=== PATIENT | male | born 1970 | race Caucasian/White ===

== ENCOUNTER → 2017-07-09 | Outpatient (REF) | payer BC ==
[2017-07-09 14:54] LABS: ALBUMIN 3.4 GM/DL (3.2-5.2); ALBUMIN/GLOBULIN RATIO 1.13 (1.00-1.93); ALKALINE PHOSPHATASE 93 U/L (45-117); ALT/SGPT 23 U/L (12-78); ANION GAP 5 MEQ/L (8-16); AST/SGOT 12 U/L (7-37); BILIRUBIN,TOTAL 0.5 MG/DL (0.2-1.0); BLOOD UREA NITROGEN 20 MG/DL (7-18); CALCIUM LEVEL 8.6 MG/DL (8.5-10.1); CARBON DIOXIDE LEVEL 29 MEQ/L (21-32); CHLORIDE LEVEL 111 MEQ/L (98-107); CHOLESTEROL LEVEL 130 MG/DL (<200); CHOLESTEROL RISK RATIO 2.708 (<5); CREATININE FOR GFR 1.02 MG/DL (0.70-1.30); GLOMERULAR FILTRATION RATE > 60.0 (>60); GLUCOSE, FASTING 138 MG/DL (70-100); HDL CHOLESTEROL 48 MG/DL (>40); LDL CHOLESTEROL 65.4 MG/DL (<100); NON-HDL-C 82 MG/DL; POTASSIUM SERUM 4.5 MEQ/L (3.5-5.1); SODIUM LEVEL 145 MEQ/L (136-145); TOTAL PROTEIN 6.4 GM/DL (6.4-8.2); TRIGLYCERIDES LEVEL 83 MG/DL (<150)
[2017-07-09 15:02] LABS: ESTIMATED AVERAGE GLUCOSE 151 MG/DL (60-110); HEMOGLOBIN A1c 6.9 %
== END ==
LOC: M SFHCLACO 08:20
DX: E11.9 Type 2 diabetes mellitus without complications (principal); Z68.41 Body mass index [BMI] 40.0-44.9, adult; Z86.79 Personal history of other diseases of the circulatory system; Z86.39 Personal history of other endocrine, nutritional and metabolic disease; E03.9 Hypothyroidism, unspecified
CPT/HCPCS: 84443

== ENCOUNTER → 2017-10-08 | Outpatient (REF) | payer BC ==
[2017-10-08 15:12] LABS: ESTIMATED AVERAGE GLUCOSE 128 MG/DL (60-110); HEMOGLOBIN A1c 6.1 %
[2017-10-08 15:16] LABS: ALBUMIN 3.5 GM/DL (3.2-5.2); ALBUMIN/GLOBULIN RATIO 1.13 (1.00-1.93); ALKALINE PHOSPHATASE 89 U/L (45-117); ALT/SGPT 32 U/L (12-78); ANION GAP 10 MEQ/L (8-16); AST/SGOT 16 U/L (7-37); BILIRUBIN,TOTAL 0.6 MG/DL (0.2-1.0); BLOOD UREA NITROGEN 20 MG/DL (7-18); CALCIUM LEVEL 8.9 MG/DL (8.5-10.1); CARBON DIOXIDE LEVEL 23 MEQ/L (21-32); CHLORIDE LEVEL 112 MEQ/L (98-107); CHOLESTEROL LEVEL 134 MG/DL (<200); CHOLESTEROL RISK RATIO 2.913 (<5); CREATININE FOR GFR 1.08 MG/DL (0.70-1.30); GLOMERULAR FILTRATION RATE > 60.0 (>60); GLUCOSE, FASTING 129 MG/DL (70-100); HDL CHOLESTEROL 46 MG/DL (>40); LDL CHOLESTEROL 75.2 MG/DL (<100); NON-HDL-C 88 MG/DL; POTASSIUM SERUM 4.4 MEQ/L (3.5-5.1); SODIUM LEVEL 145 MEQ/L (136-145); TOTAL PROTEIN 6.6 GM/DL (6.4-8.2); TRIGLYCERIDES LEVEL 64 MG/DL (<150)
== END ==
LOC: M SFHCLACO 08:02
DX: E03.9 Hypothyroidism, unspecified (principal); Z86.39 Personal history of other endocrine, nutritional and metabolic disease; E11.9 Type 2 diabetes mellitus without complications; Z68.41 Body mass index [BMI] 40.0-44.9, adult; Z86.79 Personal history of other diseases of the circulatory system
CPT/HCPCS: 84443

== ENCOUNTER 2018-04-04 02:47 | Emergency (ER) | payer BC ==
[2018-04-04] MEDS: KETOROLAC 60 MG/2 ML VIAL (J1885) IM (03:30)
[2018-04-04] MEDS ORDERED: KETOROLAC 30 MG/ML VIAL (J1885) As Ordered (03:54)
== END 2018-04-04 04:11 | disposition home or self-care (01) ==
LOC: M ED 04:11
DX: M65.88 Other synovitis and tenosynovitis, other site (principal); E11.9 Type 2 diabetes mellitus without complications; Z79.899 Other long term (current) drug therapy; Z88.1 Allergy status to other antibiotic agents
CPT/HCPCS: J1885

== ENCOUNTER → 2020-03-21 | Outpatient (REF) | payer BC ==
[~2020-03-21] MED LIST: GABA-845; JANU50TA8; LEVI20TA39; LEVO50TA5; PRED20TA PO
[2020-03-21 13:35] LABS: ALBUMIN 3.3 GM/DL (3.2-5.2); ALT/SGPT 28 U/L (12-78); BILIRUBIN,TOTAL 0.5 MG/DL (0.2-1.0); BLOOD UREA NITROGEN 17 MG/DL (7-18); CALCIUM LEVEL 9.7 MG/DL (8.5-10.1); CARBON DIOXIDE LEVEL 27 MEQ/L (21-32); CHLORIDE LEVEL 105 MEQ/L (98-107); CHOLESTEROL LEVEL 187 MG/DL (<200); CHOLESTEROL RISK RATIO 3.596 (<5); CREATININE FOR GFR 1.14 MG/DL (0.70-1.30); GLOMERULAR FILTRATION RATE > 60.0 (>56); GLUCOSE, FASTING 324 MG/DL (70-100); HDL CHOLESTEROL 52 MG/DL (>40); LDL CHOLESTEROL 106 MG/DL (<100); NON-HDL-C 135 MG/DL; POTASSIUM SERUM 4.4 MEQ/L (3.5-5.1); SODIUM LEVEL 139 MEQ/L (136-145); TOTAL PROTEIN 6.5 GM/DL (6.4-8.2); TRIGLYCERIDES LEVEL 144 MG/DL (<150)
[2020-03-21 14:58] LABS: HEMOGLOBIN A1c 9.9 %
== END ==
LOC: M SFHCADAM 08:40
PROVIDERS: ATTEND Physician Assistant
DX: E03.9 Hypothyroidism, unspecified (principal); E66.9 Obesity, unspecified; E11.9 Type 2 diabetes mellitus without complications; Z86.79 Personal history of other diseases of the circulatory system; Z86.39 Personal history of other endocrine, nutritional and metabolic disease; Z68.41 Body mass index [BMI] 40.0-44.9, adult

== ENCOUNTER → 2020-08-13 | Outpatient (REF) | payer BC ==
[2020-08-14 13:15] LABS: BLOOD UREA NITROGEN 19 MG/DL (7-18); CALCIUM LEVEL 9.6 MG/DL (8.5-10.1); CARBON DIOXIDE LEVEL 28 MEQ/L (21-32); CHLORIDE LEVEL 108 MEQ/L (98-107); CREATININE FOR GFR 1.07 MG/DL (0.70-1.30); GLOMERULAR FILTRATION RATE > 60.0 (>56); GLUCOSE, FASTING 174 MG/DL (70-100); SODIUM LEVEL 141 MEQ/L (136-145)
[2020-08-14 14:10] LABS: HEMOGLOBIN A1c 8.7 %
== END ==
LOC: M SFHCADAM 15:38
PROVIDERS: ATTEND Physician Assistant
DX: E11.9 Type 2 diabetes mellitus without complications (principal)

== ENCOUNTER → 2021-02-13 | Outpatient (REF) | payer BC ==
[~2021-02-13] MED LIST changes: +GABA-283; -GABA-845
[2021-02-13 16:49] LABS: HEMOGLOBIN A1c 10.1 %
[2021-02-13 17:13] LABS: ALBUMIN 3.8 GM/DL (3.2-5.2); ALT/SGPT 40 U/L (12-78); BILIRUBIN,TOTAL 0.3 MG/DL (0.2-1.0); BLOOD UREA NITROGEN 28 MG/DL (7-18); CALCIUM LEVEL 10.1 MG/DL (8.5-10.1); CARBON DIOXIDE LEVEL 25 MEQ/L (21-32); CHLORIDE LEVEL 107 MEQ/L (98-107); CREATININE FOR GFR 1.31 MG/DL (0.70-1.30); GLOMERULAR FILTRATION RATE > 60.0 (>56); GLUCOSE, FASTING 276 MG/DL (70-100); POTASSIUM SERUM 4.3 MEQ/L (3.5-5.1); SODIUM LEVEL 140 MEQ/L (136-145); TOTAL PROTEIN 7.2 GM/DL (6.4-8.2)
== END ==
LOC: M SFHCADAM 15:10
PROVIDERS: ATTEND Physician Assistant
DX: E03.9 Hypothyroidism, unspecified (principal); E11.9 Type 2 diabetes mellitus without complications; Z68.41 Body mass index [BMI] 40.0-44.9, adult; Z86.79 Personal history of other diseases of the circulatory system; Z86.39 Personal history of other endocrine, nutritional and metabolic disease

== ENCOUNTER → 2021-12-20 | Outpatient (REF) | payer BC ==
[2021-12-20 17:54] LABS: BASO # 0.1 10^3/uL (0.0-0.2); BASO % 0.7 % (0.0-1.0); EOS # 0.2 10^3/uL (0.0-0.5); EOS % 2.4 % (0.0-3.0); HEMATOCRIT 40.6 % (42.0-52.0); HEMOGLOBIN 13.6 g/dl (13.5-17.5); LYMPH # 2.4 10^3/uL (1.5-5.0); LYMPH % 32.1 % (24.0-44.0); MEAN CORPUSCULAR HEMOGLOBIN 29.6 pg (27.0-33.0); MEAN CORPUSCULAR HGB CONC 33.5 g/dl (32.0-36.5); MEAN CORPUSCULAR VOLUME 88.5 fl (80.0-96.0); MONO # 0.8 10^3/uL (0.0-0.8); MONO % 10.9 % (2.0-8.0); NEUTROPHILS # 3.9 10^3/uL (1.5-8.5); NEUTROPHILS % 52.3 % (36.0-66.0); PLATELET COUNT, AUTOMATED 339 10^3/uL (150-450); RED BLOOD COUNT 4.59 10^6/uL (4.30-6.10); WHITE BLOOD COUNT 7.5 10^3/uL (4.0-10.0)
[2021-12-20 18:10] LABS: HEMOGLOBIN A1c 11.6 %
[2021-12-20 18:38] LABS: ALBUMIN 2.9 GM/DL (3.2-5.2); ALT/SGPT 37 U/L (12-78); BILIRUBIN,TOTAL 0.3 MG/DL (0.2-1.0); BLOOD UREA NITROGEN 7 MG/DL (7-18); CALCIUM LEVEL 8.5 MG/DL (8.5-10.1); CARBON DIOXIDE LEVEL 23 MEQ/L (21-32); CHLORIDE LEVEL 112 MEQ/L (98-107); CHOLESTEROL LEVEL 133 MG/DL (<200); CHOLESTEROL RISK RATIO 3.594 (<5); CREATININE FOR GFR 0.96 MG/DL (0.70-1.30); GLOMERULAR FILTRATION RATE > 60.0 (>56); GLUCOSE, FASTING 239 MG/DL (70-100); HDL CHOLESTEROL 37 MG/DL (>40); LDL CHOLESTEROL 75 MG/DL (<100); NON-HDL-C 96 MG/DL; POTASSIUM SERUM 3.7 MEQ/L (3.5-5.1); SODIUM LEVEL 142 MEQ/L (136-145); TRIGLYCERIDES LEVEL 107 MG/DL (<150)
[2021-12-20 18:40] LABS: CREATININE, URINE 59.9 MG/DL; MALB URINE SIEMENS 72.7 MG/L; MAU/CREAT RATIO 121.3 MCG/MG (0.0-30.0)
[2021-12-20 19:04] LABS: VITAMIN B12 LEVEL 620 PG/ML (247-911)
== END ==
LOC: M SFHCADAM 14:07
PROVIDERS: ATTEND Physician Assistant
DX: E03.9 Hypothyroidism, unspecified (principal); E11.9 Type 2 diabetes mellitus without complications; Z86.39 Personal history of other endocrine, nutritional and metabolic disease

== ENCOUNTER → 2021-12-23 | Outpatient (REF) | payer BC | LOC: M SFHCADAM 14:36 | PROVIDERS: ATTEND Physician Assistant | DX: R19.7 Diarrhea, unspecified (principal) ==

== ENCOUNTER → 2022-04-24 | Outpatient (REF) | payer BC ==
[2022-04-24 13:33] LABS: BASO # 0.1 10^3/uL (0.0-0.2); BASO % 0.5 % (0.0-1.0); EOS # 0.2 10^3/uL (0.0-0.5); EOS % 2.1 % (0.0-3.0); HEMATOCRIT 48.3 % (42.0-52.0); HEMOGLOBIN 15.7 g/dl (13.5-17.5); LYMPH # 2.7 10^3/uL (1.5-5.0); LYMPH % 29.2 % (24.0-44.0); MEAN CORPUSCULAR HEMOGLOBIN 29.7 pg (27.0-33.0); MEAN CORPUSCULAR HGB CONC 32.5 g/dl (32.0-36.5); MEAN CORPUSCULAR VOLUME 91.3 fl (80.0-96.0); MONO # 0.9 10^3/uL (0.0-0.8); MONO % 9.9 % (2.0-8.0); NEUTROPHILS # 5.3 10^3/uL (1.5-8.5); NEUTROPHILS % 57.7 % (36.0-66.0); PLATELET COUNT, AUTOMATED 299 10^3/uL (150-450); RED BLOOD COUNT 5.29 10^6/uL (4.30-6.10); WHITE BLOOD COUNT 9.3 10^3/uL (4.0-10.0)
[2022-04-24 13:46] LABS: HEMOGLOBIN A1c 7.3 % (4.0-6.0)
[2022-04-24 13:54] LABS: ALBUMIN 3.5 G/DL (3.2-5.2); ALKALINE PHOSPHATASE 136 U/L (46-116); ALT/SGPT 27 U/L (7.0-40); AST/SGOT 22 U/L (<34); BILIRUBIN,TOTAL 0.4 MG/DL (0.3-1.2); BLOOD UREA NITROGEN 24 MG/DL (9-23); CALCIUM LEVEL 9.4 MG/DL (8.5-10.1); CARBON DIOXIDE LEVEL 25 MMOL/L (20-31); CHLORIDE LEVEL 107 MMOL/L (98-107); CREATININE FOR GFR 1.01 MG/DL (0.70-1.30); CREATININE, URINE 226.1 MG/DL; GLOMERULAR FILTRATION RATE > 60.0 (>56); GLUCOSE, FASTING 155 MG/DL (60-100); POTASSIUM SERUM 5.1 MMOL/L (3.5-5.1); SODIUM LEVEL 141 MMOL/L (136-145); TOTAL PROTEIN 6.8 G/DL (5.7-8.2)
[2022-04-24 13:57] LABS: TOTAL 25(OH) VITAMIN D 30.2 NG/ML (20.0-100.0)
[2022-04-24 14:39] LABS: MAU/CREAT RATIO 186.2 MCG/MG (0.0-30.0)
== END ==
LOC: M SFHCADAM 10:30
PROVIDERS: ATTEND Physician Assistant
DX: E11.65 Type 2 diabetes mellitus with hyperglycemia (principal); Z98.84 Bariatric surgery status; E03.9 Hypothyroidism, unspecified; Z68.42 Body mass index [BMI] 45.0-49.9, adult; I10 Essential (primary) hypertension; E78.5 Hyperlipidemia, unspecified; Z12.5 Encounter for screening for malignant neoplasm of prostate
CPT/HCPCS: 80053; 82043; 82306; 83036; 85025; G0103

== ENCOUNTER → 2022-04-24 | Outpatient (CLI) | payer BC | LOC: M ADAMS 10:35 | PROVIDERS: ATTEND Physician Assistant | DX: S30.0XXA Contusion of lower back and pelvis, initial encounter (principal); M25.78 Osteophyte, vertebrae; M51.37 Other intervertebral disc degeneration, lumbosacral region ==

== ENCOUNTER → 2022-05-22 | Outpatient (CLI) | payer BC | LOC: M PLAIMG 06:44 | PROVIDERS: ATTEND Physician Assistant | DX: S30.0XXA Contusion of lower back and pelvis, initial encounter (principal) ==

== ENCOUNTER 2022-08-01 06:28 | Day surgery (SDC) | payer BC ==
[~2022-08-01] VITALS: Ht 195.6 cm; Wt 163.0 kg
[~2022-08-01 06:28] MED LIST changes: +NS 1,000 ML IV ONE
[2022-08-01] MEDS ORDERED: SIMETHICONE 40MG/0.6ML DROPS 30ML As Ordered ONE (06:54)
[2022-08-01] MEDS ORDERED: LIDOCAINE 2% 100MG/5ML SDV (FOR ANES.) As Ordered ONE (06:55)
[2022-08-01] MEDS ORDERED: propofoL 200 MG/20 ML VIAL As Ordered ONE ×2 (06:55→08:01)
[2022-08-01 08:40] VITALS: BP 180/88
== END 2022-08-01 08:50 | disposition home or self-care (01) ==
LOC: M OPP 06:28
PROVIDERS: ATTEND Surgery
DX: Z12.11 Encounter for screening for malignant neoplasm of colon (principal); D12.6 Benign neoplasm of colon, unspecified; K57.30 Diverticulosis of large intestine without perforation or abscess without bleeding; E03.9 Hypothyroidism, unspecified; E11.9 Type 2 diabetes mellitus without complications; Z79.84 Long term (current) use of oral hypoglycemic drugs; Z79.85 Long-term (current) use of injectable non-insulin antidiabetic drugs; Z79.890 Hormone replacement therapy; Z79.891 Long term (current) use of opiate analgesic; Z79.899 Other long term (current) drug therapy; Z88.1 Allergy status to other antibiotic agents; Z80.7 Family history of other malignant neoplasms of lymphoid, hematopoietic and related tissues; Z80.8 Family history of malignant neoplasm of other organs or systems; Z86.14 Personal history of Methicillin resistant Staphylococcus aureus infection

== ENCOUNTER → 2022-08-01 | Outpatient (REF) | payer BC ==
[~2022-08-01] MED LIST changes: +ACET-897 PO; +DULO1CAP6 PO; -GABA-283; +GABA-283 PO; +GLIM2TAB4 PO; -LEVO50TA5; +LEVO50TA5 PO; +METF-877 PO; +SERT25TA21 PO; +TIRZ7.5P SQ; +VITMTA PO
[2022-08-01 14:22] LABS: THYROID STIMULATING HORMONE 1.757 uIU/ML (0.55-4.78)
[2022-08-01 14:23] LABS: TOTAL 25(OH) VITAMIN D 34.3 NG/ML (20.0-100.0)
[2022-08-01 14:25] LABS: FREE T4 1.18 NG/DL (0.89-1.76)
== END ==
LOC: M SFHCADAM 09:17
PROVIDERS: ATTEND Physician Assistant
DX: E03.9 Hypothyroidism, unspecified (principal); E55.9 Vitamin D deficiency, unspecified

== ENCOUNTER → 2022-08-06 | Outpatient (CLI) | payer BC ==
[~2022-08-06] MED LIST changes: -NS 1,000 ML IV ONE
== END ==
LOC: M SOG 11:02
PROVIDERS: ATTEND Orthopaedic Surgery
DX: M17.11 Unilateral primary osteoarthritis, right knee (principal); M11.261 Other chondrocalcinosis, right knee

== ENCOUNTER → 2023-04-28 | Outpatient (CLI) | payer BC ==
[~2023-04-28] MED LIST changes: -GABA-283 PO; +GABA-284 PO
== END ==
LOC: M SOG 07:57
PROVIDERS: ATTEND Physician Assistant
DX: M25.522 Pain in left elbow (principal); M25.521 Pain in right elbow

== ENCOUNTER → 2023-06-24 | Outpatient (REF) | payer BC | LOC: M SFHCADAM 14:20 | PROVIDERS: ATTEND Physician Assistant | DX: Z12.5 Encounter for screening for malignant neoplasm of prostate (principal) ==

== ENCOUNTER → 2023-11-11 | Outpatient (CLI) | payer BC | LOC: M SOG 11:11 | PROVIDERS: ATTEND Physician Assistant | DX: M25.511 Pain in right shoulder (principal) ==

== ENCOUNTER → 2023-12-07 | Outpatient (REF) | payer BC ==
[2023-12-07 18:48] LABS: BASO # 0.1 10^3/uL (0.0-0.2); BASO % 0.5 % (0.0-1.0); EOS # 0.3 10^3/uL (0.0-0.5); EOS % 2.7 % (0.0-3.0); HEMOGLOBIN 16.5 g/dl (13.5-17.5); LYMPH # 2.6 10^3/uL (1.5-5.0); LYMPH % 25.1 % (24.0-44.0); MEAN CORPUSCULAR HEMOGLOBIN 30.3 pg (27.0-33.0); MEAN CORPUSCULAR HGB CONC 32.4 g/dl (32.0-36.5); MEAN CORPUSCULAR VOLUME 93.6 fl (80.0-96.0); MONO # 0.9 10^3/uL (0.0-0.8); MONO % 8.3 % (2.0-8.0); NEUTROPHILS # 6.6 10^3/uL (1.5-8.5); NEUTROPHILS % 62.7 % (36.0-66.0); PLATELET COUNT, AUTOMATED 252 10^3/uL (150-450); RED BLOOD COUNT 5.45 10^6/uL (4.30-6.10); WHITE BLOOD COUNT 10.4 10^3/uL (4.0-10.0)
[2023-12-07 18:54] LABS: ERYTHROCYTE SEDIMENTATION RATE 20 mm/hr (0-20)
[2023-12-07 19:06] LABS: URIC ACID 6.1 MG/DL (3.7-9.2)
[2023-12-07 19:07] LABS: C REACTIVE PROTEIN QUANTITATIV < 0.40 MG/DL (<1.0)
[2023-12-07 19:09] LABS: ALBUMIN 3.5 G/DL (3.2-5.2); ALKALINE PHOSPHATASE 123 U/L (46-116); ALT/SGPT 26 U/L (7.0-40); AST/SGOT 15 U/L (<34); BILIRUBIN,TOTAL 0.5 MG/DL (0.3-1.2); BLOOD UREA NITROGEN 19 MG/DL (9-23); CALCIUM LEVEL 9.1 MG/DL (8.5-10.1); CARBON DIOXIDE LEVEL 27 MMOL/L (20-31); CHLORIDE LEVEL 110 MMOL/L (98-107); CREATININE FOR GFR 0.96 MG/DL (0.70-1.30); FREE T4 1.12 NG/DL (0.89-1.76); GLOMERULAR FILTRATION RATE > 60.0 (>56); GLUCOSE, FASTING 96 MG/DL (60-100); IRON (FE) 91 UG/DL (65-175); MAGNESIUM LEVEL 1.8 MG/DL (1.8-2.4); PERCENT SATURATION 26.7 % (19.7-50.0); POTASSIUM SERUM 4.5 MMOL/L (3.5-5.1); RHEUMATOID FACTOR QUANT 5.3 IU/ML (<14); SODIUM LEVEL 141 MMOL/L (136-145); THYROID STIMULATING HORMONE 2.275 uIU/ML (0.55-4.78); TOTAL IRON BINDING CAPACITY 341 UG/DL (250-425); TOTAL PROTEIN 6.4 G/DL (5.7-8.2)
[2023-12-07 19:10] LABS: FERRITIN 48.2 NG/ML (10.5-307.3)
[2023-12-07 19:11] LABS: VITAMIN B12 LEVEL 500 PG/ML (211-911)
[2023-12-11 01:57] LABS: CYCLIC CITRULLINATED PEPTIDE < 16 UNITS (<20)
[2023-12-11 11:03] LABS: ANA PATTERN Nuclear, Homogeneous (NEGATIVE); ANA SCREEN, IFA POSITIVE (NEGATIVE)
== END ==
LOC: M SFHCADAM 13:10
PROVIDERS: ATTEND Physician Assistant
DX: E11.42 Type 2 diabetes mellitus with diabetic polyneuropathy (principal); E03.9 Hypothyroidism, unspecified; G25.81 Restless legs syndrome; E55.9 Vitamin D deficiency, unspecified; I10 Essential (primary) hypertension

== ENCOUNTER → 2024-06-15 | Outpatient (REF) | payer BC ==
[2024-06-15 18:25] LABS: BASO # 0.1 10^3/uL (0.0-0.2); BASO % 0.5 % (0.0-1.0); EOS # 0.3 10^3/uL (0.0-0.5); EOS % 2.2 % (0.0-3.0); HEMATOCRIT 53.4 % (42.0-52.0); HEMOGLOBIN 17.8 g/dl (13.5-17.5); LYMPH # 2.8 10^3/uL (1.5-5.0); LYMPH % 21.5 % (24.0-44.0); MEAN CORPUSCULAR HGB CONC 33.3 g/dl (32.0-36.5); MEAN CORPUSCULAR VOLUME 92.9 fl (80.0-96.0); MONO % 7.5 % (2.0-8.0); NEUTROPHILS # 8.8 10^3/uL (1.5-8.5); NEUTROPHILS % 67.7 % (36.0-66.0); PLATELET COUNT, AUTOMATED 310 10^3/uL (150-450); RED BLOOD COUNT 5.75 10^6/uL (4.30-6.10)
[2024-06-15 18:49] LABS: CHOLESTEROL RISK RATIO 3.13 (<5); CREATININE, URINE 140.1 MG/DL; HDL CHOLESTEROL 49.8 MG/DL (>40); MAU/CREAT RATIO 44.2 MCG/MG (0.0-30.0); NON-HDL-C 106.2 MG/DL
[2024-06-15 18:53] LABS: FREE T4 1.44 NG/DL (0.89-1.76); THYROID STIMULATING HORMONE 2.429 uIU/ML (0.55-4.78)
[2024-06-15 18:54] LABS: FOLATE 14.1 NG/ML (>5.4)
[2024-06-15 19:22] LABS: HEMOGLOBIN A1c 6.9 % (4.0-6.0)
== END ==
LOC: M SFHCADAM 12:00
PROVIDERS: ATTEND Physician Assistant
DX: E11.42 Type 2 diabetes mellitus with diabetic polyneuropathy (principal); G25.81 Restless legs syndrome; I10 Essential (primary) hypertension